=== PATIENT | female | born 1935 | race Caucasian/White ===

== ENCOUNTER 2023-10-02 22:27 | Emergency (ER) | payer MEDICARE, OTHER, SELFPAY ==
[2023-10-02 22:37] VITALS: BP 139/88
[2023-10-02 23:37] VITALS: BMI 16.5
[2023-10-02 23:48] VITALS: BP 152/82
--- NOTE | 2023-10-02 23:50 | ED.GENMED ---
History of Present Illness
<CHARLES Simmons - Last Filed: 10/03/23 02:21>
General
Chief Complaint: Blood Pressure Problem
Source: patient and family
Exam Limitations: none
Time Seen by Provider: 10/02/23 23:47
Nursing documentation reviewed up to this point in time: agreed with
History of Present Illness
History of Present Illness:
88 year old female presents for evaluation of a blood pressure problem. Pt routinely takes her BP at home and states that at approximately 2100 on 10/01 she observed a BP value over 200 systolic. Pt had not yet taken her night time doses of her blood
pressure medications. She states that she then took her medications, but was anxious regarding her blood pressure so called her son to bring her to the ED prior to rechecking her BP. Pt reports that she experiences episodes of increased BP 2-3 times
annually. No recent changes to her medications. She endorses mild SOB due to anxiety, but denies CHÁVEZ, CP, vision change, dizziness, weakness, fever, N/V, and changes in stool. Pt provided a urine sample during this ED visit and endorses dysuria while
providing the sample.
Past History
<CHARLES Simmons - Last Filed: 10/03/23 02:21>
Past History
ED Past Medical History: CAD, Cancer (Breast), CVA, GERD, HTN, Hypercholesterolemia, SC and Other (Leukemia, Colitis, UTI, Rectal bleeding, chronic vaginitis)
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
Social History
Tobacco: Non-smoker
Alcohol: None
Drug: None
Personal:
Living: alone
Employment: Retired
Family History
Family History: Other (Noncontributory)
Review of Systems
<CHARLES Simmons - Last Filed: 10/03/23 02:21>
Review of Systems
Allergies reviewed?: Yes
Constitutional: Reports no symptoms
EENT: Reports no symptoms
Respiratory: Reports no symptoms
Cardiac: Reports no symptoms
ABD/GI: Reports no symptoms
: Reports dysuria
Musculoskeletal: Reports no symptoms
Skin: Reports no symptoms
Neurological: Reports no symptoms
Endocrine: Reports no symptoms
Hematologic/Lymphatic: Reports no symptoms
Psychiatric: Reports anxiety (mild )
Phy Exam
<CHARLES Simmons - Last Filed: 10/03/23 02:21>
General Physical Exam
General Presentation: well appearing
General age: appears stated age
General Skin: warm
General Habitus: elderly and frail
General Mental: alert
General Hydration: appears well hydrated
Eye Exam
Eye Exam: PERRL
Cardiovascular Exam
Cardiovascular Exam: regular rate/rhythm and no edema
Pulmonary Exam
Pulmonary Exam: lungs clear and no respiratory distress
Neurological Exam
Neurological Exam: alert and oriented x3
Course
<CHARLES Simmons - Last Filed: 10/03/23 02:21>
Orders/Labs/Results
Orders:
Orders
10/02/23 23:52
Urinalysis Reflex To Culture Urgent
Date Specimen was Collected: 10/02/23
Time Specimen was Collected: 23:51
Urine Microscopic Reflex Cult Urgent
Urine Culture Urgent
KESHAV Source: U
Specimen Description:
Date Specimen was Collected: 10/02/23
Time Specimen was Collected: 23:51
10/02/23 23:58
Complete Blood Count/With Diff Urgent
Comprehensive Metabolic Panel Urgent
Troponin I Urgent
Abnormal Lab Results
10/02/23 10/03/23
23:52 00:23
RBC 3.95 L 10^6/uL
(4.20-5.40)
MCH 31.6 H pg
(27.0-31.0)
MCHC 32.5 L g/dL
(33.0-37.0)
Absolute Lymphs (auto) 5.0 H 10^3/uL
(1.2-3.4)
Sodium 134 L mmol/L
(135-145)
Chloride 97 L mmol/L
(98-107)
Carbon Dioxide 36 H mmol/L
(22-30)
BUN 24 H mg/dl
(7-17)
Glucose 128 H mg/dl
(70-99)
Total Protein 5.6 L g/dl
(6.3-8.2)
Urine Bilirubin 1+ A
(Negative)
Urine Urobilinogen 2+ A
(Neg - 1+)
Leukocyte Esterase Rfl 1+ A
(Negative)
Urine Bacteria (Reflex) Few A
(Negative)
10/03/23 00:23
10/03/23 00:23
Vital Signs
Initial and Last Documented VS:
Initial Vital Signs
Temp Pulse Resp BP Pulse Ox
97.9 F 90 14 139/88 93
10/02/23 22:37 10/02/23 22:37 10/02/23 22:37 10/02/23 22:37 10/02/23 22:37
Last Documented Vital Signs
Temp Pulse Resp BP Pulse Ox
97.9 F 82 19 149/84 94
10/02/23 22:37 10/03/23 01:00 10/03/23 01:00 10/03/23 00:00 10/03/23 00:15
<Lucas Leroy, DO - Last Filed: 10/03/23 01:19>
Orders/Labs/Results
Orders:
Orders
10/02/23 23:52
Urinalysis Reflex To Culture Urgent
Date Specimen was Collected: 10/02/23
Time Specimen was Collected: 23:51
Urine Microscopic Reflex Cult Urgent
Urine Culture Urgent
KESHAV Source: U
Specimen Description:
Date Specimen was Collected: 10/02/23
Time Specimen was Collected: 23:51
10/02/23 23:58
Complete Blood Count/With Diff Urgent
Comprehensive Metabolic Panel Urgent
Troponin I Urgent
Abnormal Lab Results
10/02/23 10/03/23
23:52 00:23
RBC 3.95 L 10^6/uL
(4.20-5.40)
MCH 31.6 H pg
(27.0-31.0)
MCHC 32.5 L g/dL
(33.0-37.0)
Absolute Lymphs (auto) 5.0 H 10^3/uL
(1.2-3.4)
Sodium 134 L mmol/L
(135-145)
Chloride 97 L mmol/L
(98-107)
Carbon Dioxide 36 H mmol/L
(22-30)
BUN 24 H mg/dl
(7-17)
Glucose 128 H mg/dl
(70-99)
Total Protein 5.6 L g/dl
(6.3-8.2)
Urine Bilirubin 1+ A
(Negative)
Urine Urobilinogen 2+ A
(Neg - 1+)
Leukocyte Esterase Rfl 1+ A
(Negative)
Urine Bacteria (Reflex) Few A
(Negative)
10/03/23 00:23
10/03/23 00:23
Vital Signs
Initial and Last Documented VS:
Initial Vital Signs
Temp Pulse Resp BP Pulse Ox
97.9 F 90 14 139/88 93
10/02/23 22:37 10/02/23 22:37 10/02/23 22:37 10/02/23 22:37 10/02/23 22:37
Last Documented Vital Signs
Temp Pulse Resp BP Pulse Ox
97.9 F 82 19 149/84 94
10/02/23 22:37 10/03/23 01:00 10/03/23 01:00 10/03/23 00:00 10/03/23 00:15
<CHARLES Simmons - Last Filed: 10/03/23 02:21>
*Critical Care Note
Total Time (30-74mins, 75-104mins- exclusive of procedures): Not Applicable
<CHARLES Simmons - Last Filed: 10/03/23 02:21>
Update Note
Update Note:
10/03/23, 01:58 - Pt resting comfortably in bed, most recent BP 149/84. No symptoms reported.
ED Attending Note
<CHARLES Simmons - Last Filed: 10/03/23 02:21>
-
Portions of this chart may have been created with voice recognition software.� Occasional wrong word or��sound alike� substitutions may have occurred due to the inherent limitations of voice recognition software.
<Lucas Leroy DO - Last Filed: 10/03/23 01:19>
ED Attending Note
Patient seen and examined by attending physician: Yes
I performed the substantive portion of visit, reviewed & personally made and approve the management plan that is documented in note by myself or JOJO.: No
ED Attending Note:
88-year-old female presents with hypertension. Patient took her blood pressure which she typically does before taking her blood pressure medications. She noticed that her blood pressure was elevated so she came into the emergency department. She
denies any symptoms. Denies headache, blurry vision, chest pain, or shortness of breath. Patient denies any changes to her medications but son, present at the bedside notes that occasionally she will take her blood pressure and noticed it to be
normal so she will not take her blood pressure medications. He is unsure if she missed her lunchtime dose. Patient also admits to some anxiety having just heard that her friend and neighbor . Patient was seen in conjunction with the PA
student. I have reviewed and agree with the history and treatment plan presented. On my independent physical exam, patient is awake, alert, and oriented x3 no acute distress pupil pupils equal and reactive to light and accommodation. Extraocular
muscles intact. Heart is regular rate and rhythm. Lungs clear to auscultation bilaterally. Skin is warm and dry. Neurologically she is intact and answering questions appropriately.
Discharge Plan
Departure
Patient Disposition: Home (Routine Discharge)
Date of Disposition: 10/03/23
Time of Disposition: 01:18
Patient with high blood pressure during this ER visit?: Yes
Condition: Good
Discharge Problem:
Hypertension
Instructions: High Blood Pressure (DC), BLOOD PRESSURE
Prescriptions:
No Action
amlodipine 2.5 MG tablet
2.5 mg PO DAILY
Patient Comments:
09/01/22-patient has pharmacy bottle in room, dated from 2020, she seemed to repeat her self when asked if she suppose to be on this or if she just taking cause its at home
isosorbide mononitrate 30 MG tablet extended release 24 hr
15 mg PO BID
Patient Comments:
09/01/22-patient has pharmacy bottle in room, dated from 2020, she seemed to repeat her self when asked if she suppose to be on this or if she just taking cause its at home
aspirin 81 MG tablet,delayed release (DR/EC)
81 mg PO DAILY
atorvastatin 10 MG tablet
10 mg PO DAILY
multivitamin with folic acid [Tab-A-Matt] 1 TABLET tablet
1 tab PO DAILY
nitroglycerin 0.4 MG tablet, sublingual
0.4 mg sublingual [id number] PRN (Reason: chest pain)
lisinopril 20 MG tablet
20 mg PO BID
metoprolol tartrate 25 mg tablet
50 mg PO BID
Rx Instructions:
Dose increased on this admission
AZO Dual Protection 5 billion cell- 15 mg Capsule
1 cap PO DAILY
pantoprazole 40 mg Tablet,Delayed Release (Dr/Ec)
40 mg PO DAILY Qty: 30 0RF
prednisone 10 mg tablet
10 mg PO DAILY Qty: 30 0RF
Rx Instructions:
Taper: 40mg daily x 3 days, 30mg daily x 3 days, 20mg daily x 3 days, 10mg daily x 3 days
nystatin 100,000 unit/mL Suspension
5 ml PO QID Qty: 200 0RF
clotrimazole-betamethasone 1-0.05 % cream
1 applic topical BID Qty: 45 0RF
nitrofurantoin monohyd/m-cryst [Macrobid] 100 mg capsule
100 mg PO Q12H 7 Days Qty: 13 0RF
Referrals:
Janey Lake MD [Family Provider] -
Activity Restrictions/Additional Instructions:
It was a pleasure meeting you and taking part in your care. We hope for your continued healing and wellness.
Please read discharge instructions in their entirety. However, they are for general education and may not describe your exact diagnosis at discharge. Information on your ER visit and medical conditions were discussed with you along with appropriate
follow up information...
If indicated, please take your medications as instructed and indicated on discharge paperwork.
Please schedule a follow up appointment as directed. Call to schedule an appointment
Please return to the emergency department with ANY change in, persisting, or worsening of symptoms. If any of your symptoms do not improve, or persist, or become more severe within 6-12 hours, please return to the emergency department for further
care.
Please return to the emergency department if you develop a headache, neck pain/stiffness, fever greater than 100.4F, chest pain, shortness of breath, persistent nausea, vomiting, slurred speech, difficulty walking, numbness/tingling, weakness, signs
of infection or any other symptoms that are worrisome to you.
If you have any questions or concerns please do not hesitate to call the Hospital at or E-mail me directly at [email or web address]
Interventions
Interventions:
*Risk Screen - Suicide Last Done: 10/02/23 22:37
*General Assessment Last Done: 10/02/23 22:37
*Neglect/Abuse Screening Last Done: 10/02/23 22:37
ED- Fall Risk Assessment Last Done: 10/02/23 23:37
*ED COVID-19 Vaccine History Last Done: 10/02/23 22:37
ED- Cardiac Assessment Last Done: 10/02/23 23:37
ED- Neurological Assessment Last Done: 10/02/23 23:37
ED- Pulmonary Assessment Last Done: 10/02/23 23:37
Discharge Date and Time
Print Language: [email or web address]
[2023-10-03] VITALS: BP 149/84
[2023-10-03 00:11] LABS: Urine Albumin Trace (Neg - Trace); Urine Bilirubin 1+ (Negative); Urine Character Clear (Clear); Urine Color Yellow; Urine Glucose Negative (Negative); Urine Ketone Negative (Negative); Urine Leukocyte 1+ (Negative); Urine Nitrite Negative (Negative); Urine Occult Blood Negative (Negative); Urine Urobilinogen 2+ (Neg - 1+)
[2023-10-03 00:40] LABS: Urine Calcium Oxalate Crystals Seen; Urine Hyaline Cast 0-2 /LPF (0-2); Urine Squamous Cell 0-2 /LPF (Few)
[2023-10-03 00:41] LABS: Urine Bacteria Few (Negative); Urine Red Blood Cell 0-2 /HPF (0-2)
[2023-10-03 00:43] LABS: % Basophils 0.5 % (0-2); % Eosinophils 0.3 % (0-6); % Immature Granulocytes 0.3 % (0-0.5); % Monocytes 5.9 % (1.7-9.3); ALT (SGPT) 13 U/L (0-35); AST (SGOT) 24 U/L (14-36); Absolute Basophils 0.1 10^3/uL (0-0.2); Absolute Monocytes 0.6 10^3/uL (0.1-0.6); Absolute Neutrophils 5.1 10^3/uL (1.4-6.5); Albumin 3.6 g/dl (3.5-5.0); Alkaline Phosphatase 51 U/L (38-126); Blood Urea Nitrogen 24 mg/dl (7-17); Calcium 9.4 mg/dl (8.4-10.2); Carbon Dioxide 36 mmol/L (22-30); Chloride 97 mmol/L (98-107); Estimated Creatinine Clearance 31 ml/min; Glucose 128 mg/dl (70-99); Hematocrit 38.5 % (37.0-47.0); Hemoglobin 12.5 g/dL (12.0-16.0); Mean Corp Hgb Conc. 32.5 g/dL (33.0-37.0); Mean Corpuscular Hgb 31.6 pg (27.0-31.0); Mean Corpuscular Volume 97.5 fL (81.0-99.0); Mean Platelet Volume 10.1 fL (7.4-10.4); Nucleated Red Blood Cells % 0 %; Platelet Count 176 10^3/uL (130-400); Red Blood Cell Count 3.95 10^6/uL (4.20-5.40); Red Cell Dist. Width 13.6 % (11.5-14.5); Sodium 134 mmol/L (135-145); Total Bilirubin 0.8 mg/dl (0.2-1.3); Total Protein 5.6 g/dl (6.3-8.2); White Blood Cell Count 10.8 10^3/uL (4.8-10.8); eGFR > 60.00
[2023-10-03 00:52] LABS: Troponin I < 0.012 ng/ml
[2023-10-03 01:00] VITALS: BP 129/81
== END 2023-10-03 02:23 | disposition home or self-care (01) ==
LOC: EMR 22:27
PROVIDERS: EMERGENCY PHYSICIAN Student in an Organized Health Care Education/Training Program; FAMILY PHYSICIAN Internal Medicine
DX: I10 Essential (primary) hypertension (principal); F41.9 Anxiety disorder, unspecified; E78.00 Pure hypercholesterolemia, unspecified; I25.10 Atherosclerotic heart disease of native coronary artery without angina pectoris; K21.9 Gastro-esophageal reflux disease without esophagitis; Z85.3 Personal history of malignant neoplasm of breast; Z86.73 Personal history of transient ischemic attack (TIA), and cerebral infarction without residual deficits; Z87.440 Personal history of urinary (tract) infections; Z90.12 Acquired absence of left breast and nipple; Z95.5 Presence of coronary angioplasty implant and graft
CPT/HCPCS: 99282; 80053; 81003; 81015; 84484; 85025; 87086

== ENCOUNTER → 2024-01-01 08:42 | Outpatient (REF) | payer MEDICARE, OTHER, SELFPAY ==
[2024-01-01 09:40] LABS: Hematocrit 43.8 % (37.0-47.0); Hemoglobin 13.9 g/dL (12.0-16.0); Mean Corp Hgb Conc. 31.7 g/dL (33.0-37.0); Mean Corpuscular Hgb 31.1 pg (27.0-31.0); Mean Platelet Volume 10.4 fL (7.4-10.4); Platelet Count 225 10^3/uL (130-400); Red Blood Cell Count 4.47 10^6/uL (4.20-5.40); Red Cell Dist. Width 13.8 % (11.5-14.5); White Blood Cell Count 10.4 10^3/uL (4.8-10.8)
[2024-01-01 10:36] LABS: ALT (SGPT) 18 U/L (0-35); AST (SGOT) 26 U/L (14-36); Albumin 3.9 g/dl (3.5-5.0); Alkaline Phosphatase 53 U/L (38-126); Blood Urea Nitrogen 23 mg/dl (7-17); Calcium 9.6 mg/dl (8.4-10.2); Carbon Dioxide 37 mmol/L (22-30); Chloride 97 mmol/L (98-107); Glucose 119 mg/dl (70-99); HDL Cholesterol 94 mg/dl; LDL Cholesterol, Calculated 59 mg/dl; Potassium 5.1 mmol/L (3.5-5.1); Sodium 140 mmol/L (135-145); Total Cholesterol 163 mg/dl (50-199); Total Protein 6.2 g/dl (6.3-8.2); Triglyceride 51 mg/dl (10-149); Very Low Density Lipoprotein 10 mg/dl (0-30); eGFR > 60.00
[2024-01-01 10:45] LABS: Vitamin D, 25-OH*** 49.5 ng/mL (30-80)
[2024-01-01 10:46] LABS: Glycohemoglobin (HgbA1c) 5.9 % (4.0-5.6)
[2024-01-01 10:58] LABS: TSH Reflex To Free T4 3.31 uIU/ml (0.47-4.68)
[2024-01-01 11:17] LABS: Microalbumin, Random Urine 21.7 mg/dl (0.6-1.7); Microalbumin/creatinine Ratio 56.7 mg/g
[2024-01-03 09:17] LABS: Intact PTH 116.6 pg/ml (13.6-85.8)
== END ==
LOC: REG 08:42
PROVIDERS: ATTENDING PHYSICIAN Family Medicine
DX: I10 Essential (primary) hypertension (principal); I25.10 Atherosclerotic heart disease of native coronary artery without angina pectoris; Z95.5 Presence of coronary angioplasty implant and graft; E78.00 Pure hypercholesterolemia, unspecified; R73.01 Impaired fasting glucose; C91.10 Chronic lymphocytic leukemia of B-cell type not having achieved remission; Z79.899 Other long term (current) drug therapy
CPT/HCPCS: 36415; 80053; 80061; 82043; 82306; 82570; 83036; 83970; 84443; 85027